=== PATIENT | female | born 1985 | race African-American/Black ===

== ENCOUNTER 2018-10-08 12:39 | Emergency (ER) | payer OTHER ==
[~2018-10-08] VITALS: Ht 160 cm; Wt 73.0 kg
[2018-10-08 14:12] VITALS: BP 120/75
== END 2018-10-08 14:32 | disposition left against medical advice (07) ==
LOC: ER 13:55
DX: M54.2 Cervicalgia (principal); R51 Headache; R07.89 Other chest pain; Z53.21 Procedure and treatment not carried out due to patient leaving prior to being seen by health care provider

== ENCOUNTER 2020-05-24 00:14 | Emergency (ER) | payer OTHER ==
[~2020-05-24] VITALS: Ht 162.6 cm; Wt 59.0 kg
[2020-05-24] MEDS ORDERED: LEVETIRACETAM 1000MG/100ML 100 ML IV ONE (00:30)
[2020-05-24] MEDS ORDERED: SODIUM CHLORIDE 0.9% 1,000 ML IV ONE (00:30)
[2020-05-24 02:28] LABS: BASOPHILS % 0.4 % (0.0-2.0); EOSINOPHILS % 2.2 % (0.0-5.0); HEMOGLOBIN. 12.7 g/dL (12.0-16.0); LYMPHOCYTES % 31.1 % (20.0-50.0); MEAN CORPUSCULAR HEMOGLOBIN 31.9 pg (28.0-32.0); MEAN CORPUSCULAR VOLUME 95.1 fL (81.0-99.0); MEAN PLATELET VOLUME 8.4 fl (7.4-10.4); MONOCYTES % 6.8 % (2.0-8.0); NEUTROPHILS % 59.5 % (40.0-76.0); PLATELET 296 x1000/uL (130-400); RED CELL DISTRIBUTION WIDTH 16.2 % (11.6-14.6)
[2020-05-24 02:37] LABS: CHLORIDE 106 mEq/L (98-107)
[2020-05-24 02:41] LABS: ETHANOL BLOOD < 10 mg/dL
[2020-05-24 06:55] VITALS: BP 105/65
[2020-05-24 08:58] LABS: CLARITY URINE CLEAR (CLEAR); COLOR URINE YELLOW (YELLOW); KETONES URINE NEGATIVE (NEGATIVE); LEUKOCYTE ESTERASE URINE NEGATIVE (NEGATIVE); NITRITE URINE NEGATIVE (NEGATIVE); OCCULT BLOOD URINE NEGATIVE (NEGATIVE); PROTEIN URINE NEGATIVE (NEGATIVE); SPECIFIC GRAVITY URINE 1.015 (1.005-1.030)
[2020-05-24 09:27] LABS: *BENZODIAZEPINES SCREEN URINE NEGATIVE (NEGATIVE); *COCAINE SCREEN URINE NEGATIVE (NEGATIVE)
[2020-05-24 09:28] LABS: *AMPHETAMINES SCREEN URINE NEGATIVE (NEGATIVE); METHADONE URINE SCREEN NEGATIVE (NEGATIVE); PHENCYCLIDINE URINE SCREEN NEGATIVE (NEGATIVE)
[2020-05-24 09:37] LABS: *BARBITURATES SCREEN URINE PRESUMTIVE POSITIVE (NEGATIVE); CANNABINOID URINE SCREEN PRESUMTIVE POSITIVE (NEGATIVE); OPIATES URINE SCREEN PRESUMTIVE POSITIVE (NEGATIVE)
== END 2020-05-24 06:58 | disposition home or self-care (01) ==
LOC: ER 00:14
DX: R56.9 Unspecified convulsions (principal); R41.0 Disorientation, unspecified; Z85.9 Personal history of malignant neoplasm, unspecified
CPT/HCPCS: 36415; 70450; 80053; 80305; 80320; 81003; 85025; 96361; 96365; 96366; 99285; J1953; J7030; G0480

== ENCOUNTER 2021-03-05 23:34 | Inpatient (IN) | payer MEDICAID, OTHER ==
[~2021-03-05] VITALS: Ht 165.1 cm; Wt 59.4 kg
[2021-03-06] MEDS ORDERED: ACETAMINOPHEN 325MG TABLET PO STA (00:07)
[2021-03-06] MEDS ORDERED: SODIUM CHLORIDE 0.9% 1000ML BAG (SEPSIS BOLUS) IV ONE (00:15)
[2021-03-06] MEDS ORDERED: METOCLOPRAMIDE HCL 10MG/2ML VIAL IV ONE (00:30)
[2021-03-06] MEDS ORDERED: MORPHINE SULFATE 4 MG/ML CPJ (NOT FOR IM USE) IV ONE (00:30)
[2021-03-06] MEDS ORDERED: DIPHENHYDRAMINE 50MG/ML VIAL IV ONE (00:30)
[2021-03-06 01:05] LABS: HEMATOCRIT. 35.2 % (36.0-48.0); HEMOGLOBIN. 11.8 g/dL (12.0-16.0); MEAN CORPUSCULAR HEMOGLOBIN 28.3 pg (28.0-32.0); MEAN CORPUSCULAR VOLUME 84.6 fL (81.0-99.0); MEAN PLATELET VOLUME 9.4 fl (7.4-10.4); PLATELET 130 x1000/uL (130-400); RED BLOOD CELL COUNT 4.16 mill/uL (4.2-5.4); RED CELL DISTRIBUTION WIDTH 22.7 % (11.6-14.6)
[2021-03-06 01:12] LABS: CHLORIDE 100 mEq/L (98-107)
[2021-03-06 01:27] LABS: CLARITY URINE CLEAR (CLEAR); COLOR URINE YELLOW (YELLOW); KETONES URINE NEGATIVE (NEGATIVE); LEUKOCYTE ESTERASE URINE TRACE (NEGATIVE); NITRITE URINE NEGATIVE (NEGATIVE); OCCULT BLOOD URINE NEGATIVE (NEGATIVE); PH URINE 8.5 (4.5-8.0); PROTEIN URINE NEGATIVE (NEGATIVE); SPECIFIC GRAVITY URINE 1.012 (1.005-1.030)
[2021-03-06 01:46] LABS: INR 1.1; PROTHROMBIN TIME 11.5 sec (9.6-11.0)
[2021-03-06 01:52] LABS: HCG SCREEN NEGATIVE
[2021-03-06] MEDS ORDERED: MORPHINE SULFATE 2 MG/ML CPJ (NOT FOR IM USE) IV ONE (05:00)
[2021-03-06 05:03] LABS: PLATELET ESTIMATE NORMAL
[2021-03-06] MEDS ORDERED: NA PHOS,M-B/NA PHOS,DI-BA ENEMA 118ML PR PRN (05:45)
[2021-03-06] MEDS ORDERED: ACETAMINOPHEN 650MG/20.3ML UDC GT PRN (05:45)
[2021-03-06] MEDS ORDERED: HYDROMORPHONE HCL/PF 2MG/ML CPJ IV PRN ×2 (05:45→13:00)
[2021-03-06] MEDS ORDERED: LORAZEPAM 2MG/ML CPJ IV PRN (05:45)
[2021-03-06] MEDS ORDERED: ONDANSETRON HCL 4MG/2ML INJ IV PRN (05:45)
[2021-03-06] MEDS ORDERED: DEXT 5%/0.45% NACL KCL 20MEQ/L 1,000 ML IV ONE (05:45)
[2021-03-06] MEDS ORDERED: DOCUSATE SODIUM 100MG CAPSULE PO PRN (05:45)
[2021-03-06] MEDS ORDERED: NALOXONE HCL 0.4MG/ML VIAL IV PRN (06:00)
[2021-03-06] MEDS ORDERED: ENOXAPARIN 40MG/0.4ML SYR SUBCUT SCH (09:00)
[2021-03-06] MEDS ORDERED: VANCOMYCIN 1 G PREMIX 200 ML IV SCH (09:30)
[2021-03-06] MEDS ORDERED: PIPERACILLIN/TAZ 3.375G PREMIX 50 ML IV SCH (10:00)
[2021-03-06] MEDS ORDERED: VANCOMYCIN 750 MG PREMIX 150 ML IV SCH (16:00)
[2021-03-06] MEDS ORDERED: PIPERACILLIN/TAZOBACTAM 3.375 G in DEXTROSE 5% WATER 50 ML IV SCH (16:30)
[2021-03-06 19:30] VITALS: BP 100/69
== END 2021-03-06 20:55 | disposition left against medical advice (07) | DRG 281 ==
LOC: ER 23:34 → MICUSO 03-06 05:13 → EDBEDREQ 03-06 05:18 → EDBEDREQSVC 03-06 05:18 → EDBEDREQTM 03-06 05:18 → EDBEDREQSVC 03-06 08:43 → 6EST 03-06 15:07 → CANBEDREQ 03-06 20:28
PROVIDERS: ADMIT Internal Medicine Pulmonary Disease; ATTEND Internal Medicine Pulmonary Disease
DX: C78.7 Secondary malignant neoplasm of liver and intrahepatic bile duct (principal); C50.919 Malignant neoplasm of unspecified site of unspecified female breast; Z93.1 Gastrostomy status; D72.825 Bandemia; R10.9 Unspecified abdominal pain; R51.9 Headache, unspecified; Z20.822 Contact with and (suspected) exposure to COVID-19; Z51.5 Encounter for palliative care; R74.01 Elevation of levels of liver transaminase levels; Z82.49 Family history of ischemic heart disease and other diseases of the circulatory system; Z85.3 Personal history of malignant neoplasm of breast; Z79.810 Long term (current) use of selective estrogen receptor modulators (SERMs); Z86.711 Personal history of pulmonary embolism
CPT/HCPCS: 36415; 71045; 74176; 80053; 81003; 83605; 84145; 84484; 84703; 85025; 93005; 99285; J0696; J1170; J1200; J1650; J2270; J2543; J2765; J3370; J7030; J7060